=== PATIENT | female | born 1990 | race Caucasian/White ===

== ENCOUNTER 2017-02-15 06:39 | Emergency (ER) | payer SELFPAY ==
[~2017-02-15] VITALS: Ht 162.6 cm; Wt 68.0 kg
[2017-02-15 06:45] VITALS: BP_SYST 147
--- NOTE | 2017-02-15 06:49 | NUR ---
Placed in room 07 . Placed on blood pressure machine and pulse oximeter. Side rails up. Report given to RN.
--- NOTE | 2017-02-15 06:49 | NUR ---
ER at bedside examining patient.
--- NOTE | 2017-02-15 06:50 | NUR ---
Patient AAO x4, sitting in bed, Brought in BLS for LAC to L arm. 1 inch Laceration noted to Left forearm. No active bleeding, pain 01/04. Patient states she was "playing/messing around with my grandpa and we knocked over a vase and I cut my arm." No acute distress noted. Will continue to monitor.
--- NOTE | 2017-02-15 06:54 | NUR ---
Dr. Larios at bedside to perform laceration repair. Using sterile technique, patient tolerating well. Will continue to monitor.
[2017-02-15] MEDS ORDERED: LIDOCAINE 1%, 20 ML MDV 20 ML ONE (06:58)
--- NOTE | 2017-02-15 07:05 | NUR ---
Recieved report from Joann HARE. PT tolerated sutures well. Will continue to monitor.
[2017-02-15] MEDS ORDERED: BACITRACIN 1 GM OINT TP ONE (07:15)
[2017-02-15] MEDS ORDERED: LIDOCAINE/EPI 1% 1:100000 20 ML VIAL IJ ONE (07:15)
[2017-02-15] MEDS ORDERED: DIPH-TET-PERTUS Vaccine 0.5 ML VIAL (ADACEL) IM ONE (07:15)
--- NOTE | 2017-02-15 07:25 | NUR ---
ED MD Larios at bedside for discharge teaching. PT tolerated sutures well. Will continue to monitor.
--- NOTE | 2017-02-15 07:29 | NUR ---
Patient and friend given written and verbal discharge instructions and verbalizes understanding. ER MD discussed with patient and friend the results and treatment provided. Patient in stable condition. ID arm band removed. No Rx given. Patient and friend educated on pain management and to follow up with PMD. Pain Scale 0. Opportunity for questions provided and answered.
[2017-02-15 07:42] VITALS: BP_SYST 143
--- NOTE | 2017-02-15 07:54 | NUR ---
Gerald yoon in ED - 02/15/17 at 0755 by [email or web address] ABRAM Larios at bedside for discharge teaching.
== END 2017-02-15 07:29 | disposition home or self-care (01) ==
LOC: SED 06:39
DX: S51.812A Laceration without foreign body of left forearm, initial encounter (principal); W25.XXXA Contact with sharp glass, initial encounter; Y93.89 Activity, other specified; Y92.89 Other specified places as the place of occurrence of the external cause; Y99.8 Other external cause status
CPT/HCPCS: 12001; 90471; 90715; 99283; J2001